=== PATIENT | female | born 1995 | race Two or more races ===

== ENCOUNTER 2021-09-18 14:28 | Outpatient (CLI) | payer OTHER | END 2021-09-18 15:41 | disposition home or self-care (01) | LOC: NST 14:28 | PROVIDERS: ATTEND Obstetrics & Gynecology Maternal & Fetal Medicine | DX: Z34.83 Encounter for supervision of other normal pregnancy, third trimester (principal) ==

== ENCOUNTER 2021-09-23 10:55 | Inpatient (IN) | payer OTHER ==
[~2021-09-23] VITALS: Ht 152.4 cm; Wt 3.6 kg
[2021-10-01] MEDS ORDERED: PRENATABS RX T1 EACH PO (08:06)
== END 2021-10-03 13:24 | disposition home or self-care (01) | DRG 788 ==
LOC: OB/GYN 10:55 → LDR 10-01 06:34 → OB/GYN 10-01 06:34
PROVIDERS: ADMIT Obstetrics & Gynecology; ATTEND Obstetrics & Gynecology
PROC: 4A1HXCZ Monitoring of Products of Conception, Cardiac Rate, External Approach (ICD-10-PCS; 2021-10-01)
PROC: 10D00Z1 Extraction of Products of Conception, Low, Open Approach (ICD-10-PCS; principal; 2021-10-01 15:00)
DX: O33.5XX0 Maternal care for disproportion due to unusually large fetus, not applicable or unspecified (principal); O36.63X0 Maternal care for excessive fetal growth, third trimester, not applicable or unspecified; O62.1 Secondary uterine inertia; O48.0 Post-term pregnancy; Z3A.41 41 weeks gestation of pregnancy; Z37.0 Single live birth

== ENCOUNTER 2023-09-16 09:15 | Inpatient (IN) | payer OTHER ==
[~2023-09-16] VITALS: Ht 152.4 cm; Wt 3.2 kg
[~2023-09-16 09:15] MED LIST: PRENATABS RX T1 EACH PO
[2023-09-16 10:47] LABS: HEMATOCRIT 30.9 % (36.0-45.00); HEMOGLOBIN 10.7 g/dL (12.0-15.00); MEAN CELL VOLUME 92.3 fL (80.00-100.00); MEAN CORPUSCULAR HEMOGLOBIN 31.9 pg (27.00-32.0); MEAN CORPUSCULAR HGB CONC 34.6 g/dl (32.0-36.0); PLATELET COUNT 178 K/uL (150-450); RED BLOOD COUNT 3.35 M/uL (4.00-6.00); RED CELL DISTRIBUTION WIDTH 14.3 % (11.5-14.5)
[2023-09-16 11:39] LABS: ALBUMIN 2.8 gm/dL (3.4-5.0); BILIRUBIN TOTAL 0.41 mg/dL (0.3-1.2); CALCIUM 8.7 mg/dL (8.5-10.1); CREATININE SERUM 0.44 mg/dL (0.55-1.02); GFR 169.05; POTASSIUM 3.57 mEq/L (3.5-5.1); TOTAL PROTEIN 5.8 gm/dL (6.4-8.2)
[2023-09-16 11:53] LABS: INR 0.97; PARTIAL THROMBOPLASTIN TIME 31.6 SECONDS (22.0-34.0); PROTHROMBIN TIME 10.2 SECONDS (9.0-11.5)
[2023-09-23] MEDS ORDERED: IRON325 MG PO (08:22)
[2023-09-23] MEDS ORDERED: CEFAZOLIN SODIUM 1,000 MG VIAL ONE (13:35)
[2023-09-23] MEDS ORDERED: MORPHINE SULFATE 4 MG/ML CARTRIDGE IV PRN (16:00)
[2023-09-23] MEDS ORDERED: OXYTOCIN 1,000 ML IV NR (16:00)
[2023-09-23] MEDS ORDERED: RINGERS SOLUTION,LACTATED 1,000 ML IV SCH (16:00)
[2023-09-23] MEDS ORDERED: ERYTHROMYCIN BASE 1 GM TUBE OP ONE (16:31)
[2023-09-23] MEDS ORDERED: OXYTOCIN 10 UNITS/ML VIAL ONE ×2 (16:31→21:11)
[2023-09-23] MEDS ORDERED: CITRIC ACID/SODIUM CITRATE 30 ML BLIST.PACK PO ONE (16:41)
[2023-09-23] MEDS ORDERED: GABAPENTIN 300 MG CAPSULE PO SCH (17:00)
[2023-09-23] MEDS ORDERED: SIMETHICONE 125 MG CAPSULE PO SCH (17:00)
[2023-09-23] MEDS ORDERED: KETOROLAC TROMETHAMINE 30 MG VIAL IV SCH (18:00)
[2023-09-23] MEDS ORDERED: ACETAMINOPHEN 500 MG GEL..CAP PO SCH (18:00)
[2023-09-23] MEDS ORDERED: ONDANSETRON HCL 2 MG/ML VIAL IV SCH (18:00)
[2023-09-23] MEDS ORDERED: KETOROLAC TROMETHAMINE 30 MG VIAL ONE (20:59)
[2023-09-24 05:31] LABS: HEMATOCRIT 30.1 % (36.0-45.00); HEMOGLOBIN 10.5 g/dL (12.0-15.00); MEAN CELL VOLUME 91.5 fL (80.00-100.00); MEAN CORPUSCULAR HGB CONC 34.9 g/dl (32.0-36.0); PLATELET COUNT 159 K/uL (150-450); RED BLOOD COUNT 3.29 M/uL (4.00-6.00); RED CELL DISTRIBUTION WIDTH 14.5 % (11.5-14.5)
[2023-09-24] MEDS ORDERED: OxyCODONE HCL 5 MG TABLET (ROXICODONE) PO PRN (08:00)
[2023-09-24] MEDS ORDERED: KETOROLAC TROMETHAMINE 10 MG TABLET PO SCH (08:00)
[2023-09-24] MEDS ORDERED: OxyCODONE HCL/APAP UD (PERCOCET) PO PRN (08:30)
[2023-09-24] MEDS ORDERED: DOCUSATE SODIUM 100MG CAP PO SCH (09:00)
[2023-09-25] MEDS ORDERED: KETO10TA2 PO (11:02)
[2023-09-25] MEDS ORDERED: OXYC1TAB9 PO (11:02)
== END 2023-09-25 15:02 | disposition home or self-care (01) | DRG 785 ==
LOC: OB/GYN 09-22 09:15 → O/R 09-23 07:42 → OB/GYN 09-23 18:40
PROVIDERS: ADMIT Obstetrics & Gynecology; ATTEND Obstetrics & Gynecology
PROC: 0UB70ZZ Excision of Bilateral Fallopian Tubes, Open Approach (ICD-10-PCS; 2023-09-23)
PROC: 4A1HXCZ Monitoring of Products of Conception, Cardiac Rate, External Approach (ICD-10-PCS; 2023-09-23)
PROC: 10D00Z1 Extraction of Products of Conception, Low, Open Approach (ICD-10-PCS; principal; 2023-09-23 07:00)
DX: O34.211 Maternal care for low transverse scar from previous cesarean delivery (principal); Z3A.39 39 weeks gestation of pregnancy; Z37.0 Single live birth; Z20.822 Contact with and (suspected) exposure to COVID-19; Z30.2 Encounter for sterilization

== ENCOUNTER 2023-09-20 09:00 | Outpatient (CLI) | payer OTHER | END 2023-09-20 11:59 | disposition home or self-care (01) | LOC: NST 09:00 | PROVIDERS: ATTEND Obstetrics & Gynecology | DX: Z34.83 Encounter for supervision of other normal pregnancy, third trimester (principal) ==